=== PATIENT | female | born 1950 | race Caucasian/White ===

== ENCOUNTER 2021-06-16 11:22 | Outpatient (CLI) | payer MEDICARE, SELFPAY ==
--- NOTE | 2021-06-16 11:32 | ECG_ITS ---
Measurements Intervals [place] Rate: 63 P: 15 WV: 148 QRS: -31 QRSD: 120 T: 25 QT: 422 QTc: 432 Interpretive Statements SINUS RHYTHM LEFT VENTRICULAR HYPERTROPHY LEFT ANTERIOR SUPERIOR HEMIBLOCK ABNORMAL ECG NO PREVIOUS ECG AVAILABLE FOR COMPARISON Electronically Signed On 06-16-2021 17:31:47 CDT by Marlo Zamudio M.D.
[2021-06-16 12:10] LABS: Anion Gap 8 mmol/L (8-16); Blood Urea Nitrogen 17 mg/dL (7-17); Calcium 9.1 mg/dL (8.4-10.2); Carbon Dioxide 28 mmol/L (22-30); Chloride 99 mmol/L (98-107); Estimated Glomerular Filt Rate > 60; Glucose 102 mg/dL (65-110); Potassium 3.6 mmol/L (3.4-5.0); Sodium 135 mmol/L (137-145)
== END 2021-06-16 11:23 | disposition home or self-care (01) ==
LOC: ANHSURGERY 11:26
PROVIDERS: Anesthesiology; PCP Family Medicine; Visit Provider Orthopaedic Surgery
DX: Z51.81 Encounter for therapeutic drug level monitoring (principal); I10 Essential (primary) hypertension; Z01.818 Encounter for other preprocedural examination; R94.31 Abnormal electrocardiogram [ECG] [EKG]
CPT/HCPCS: 36415; 80048; 93005

== ENCOUNTER → 2021-06-20 00:38 | Outpatient (CLI) | payer MEDICARE, SELFPAY ==
[2021-06-20 11:50] LABS: SARS-CoV-2 RNA PCR Negative
== END ==
PROVIDERS: PCP Family Medicine; Visit Provider Orthopaedic Surgery
DX: Z01.818 Encounter for other preprocedural examination (principal); S83.281A Other tear of lateral meniscus, current injury, right knee, initial encounter; Z20.822 Contact with and (suspected) exposure to COVID-19; S83.241A Other tear of medial meniscus, current injury, right knee, initial encounter; X58.XXXA Exposure to other specified factors, initial encounter
CPT/HCPCS: C9803; U0003; U0005

== ENCOUNTER 2021-06-23 00:19 | Day surgery (SDC) | payer MEDICARE, SELFPAY ==
[2021-06-11 15:27] VITALS: BMI 29.5
--- NOTE | 2021-06-11 15:46 | PC.NURSE ---
Report to the Outpatient Waiting Room, entrance under the green pavilion located off [facility], at time __12:00PM on date _06/23/21 . OR Time: __2:00PM . - You and your visitor will be asked a series of questions to screen for COVID 19 for your protection. - A mask is required within the hospital. Preoperative COVID Testing Requirements: COVID TEST 06/20/21 @ 9:45AM No COVID Test needed if: (proof is required; if not received patient will have Rapid Test prior to entry) - Patient has received COVID Vaccine at least 14 days prior to procedure date or - Patient has positive COVID test result within last 90 days of surgery date. COVID Test needed if above criteria is not met If not COVID vaccinated a COVID test must be conducted within 72 hours of surgery and patient is asked to isolate self from time of testing until procedure. You will go to the [facility] for your COVID testing. The [facility] is located at the corner of [address] from [facility]. You will only be called if COVID results are positive and your surgeon may reschedule your elective surgery date. Patients may have clear liquids (water, carbonated beverages, clear teas, apple juice) until 3 hours prior to surgery with a maximum of 20 ounces. - No food from midnight until time of surgery - Infants may have breast milk until 4 hours before surgery, formula 6 hours prior to surgery. - Children will be allowed to drink immediately following surgery. If applicable, please bring a bottle or sippy cup to assist with drinking. Juice, water, soda, and popsicles are readily available. For infants on formula, please bring formula the day of surgery. Pacifiers are allowed. Take the following medications with a SIP of water the morning of surgery: ___EYE DROPS Medications to discontinue per physician HOLD MELOXICAM(NSAIDS) 7 DAYS PRE-OP (LAST DOSE- 06/16/21), HOLD ALL VITAMINS/ SUPPLEMENTS 3 DAYS PRE-OP LAST DOSE 06/19/21 Please no make-up, nail burkinan, hairspray, perfume, deodorant, or body powder the day of surgery. No jewelry (including any body piercings) or valuables the day of surgery, leave them at home. Please take a shower or bath the night before, or the morning of, surgery with an antibacterial soap. Wear comfortable, loose fitting clothing. Children are encouraged to wear pajamas. - Jewelry must be removed prior to entering the operating room. Rings and piercings that are not removed may be cut off. - The hospital will not accept responsibility for valuables. - Please leave all valuables, including medications, at home the day of surgery. If you are going home after surgery, a licensed milk tanker driver must drive you home. - NO public transportation without another adult. - We recommend that an adult stay with you for 24 hours following discharge. - We also recommend that you do not drive, make important decision, drink alcoholic beverages, or take any drugs that were not prescribed by your health care provider for at least 24 hours after your discharge time. For Pediatric surgeries, we recommend two adults accompany the child home (only one inside the building at this time). One visitor will be allowed to accompany the patient into the hospital. Patients visitor will be instructed to remain with patient at all times or leave the building. We will allow the visitor to come back to the postoperative area when patient is ready. Follow any additional instructions given to you from your surgeon. Telephone instructions given to __PATIENT and asked if any additional questions and then verbalized understanding. Patient advised to call surgeon office or pre surgery nurse liaison [phone] if any additional questions.
[2021-06-23] VITALS (9 sets, daily range): BP systolic 130–177; BP diastolic 72–98; PULSE 52–78; RESP 9–16; TEMP 36.8; O2SAT 97–100; BMI 29.5
--- NOTE | 2021-06-23 07:10 | WPDHPUPDATE1 ---
History and Physical Update Update Date/Time: 06/23/21 07:10 History and Physical has been reviewed, including an updated exam of the patient. There are NO changes in the patient's condition. Risks, benefits, and alternatives have been discussed and questions answered. Patient agrees to proceed with procedure.
[2021-06-23] MEDS: ACETAMINOPHEN 500 MG TABLET 1000 MG PO (13:00)
[2021-06-23] MEDS: KETOROLAC 15 MG/ML VIAL (*BKC) IV PUSH (13:00)
--- NOTE | 2021-06-23 13:09 | P.PNAN_ITS ---
Anes - Initial Pre Proc Eval Procedure: Operation Date: 06/23/21 14:00 Proposed Procedures p Right Knee Arthroscopic Partial Medial and Lateral Meniscectomy - Martin Gold MD Date/Time: 06/23/21 13:09 Surgeon: Martin Gold MD Pre Op Diagnosis: medial and lateral meniscus tears right knee Patient Data Age: 70 Gender: F Height: 1.63 m Weight: 78 kg Allergies Allergy/AdvReac Type Severity Reaction Status Date / Time No Known Allergies Allergy Verified 06/11/21 15:15 Home Medications Medication Instructions Recorded Confirmed Type amitriptyline 10 mg tablet 10 mg PO HS 05/10/19 06/11/21 History lisinopril 10 mg tablet 10 mg PO HS 05/10/19 06/11/21 History alendronate 70 mg tablet 70 mg PO WEEKLY 03/26/21 06/11/21 History apremilast 30 mg tablet 30 mg PO BID 03/26/21 06/11/21 History linaclotide 145 mcg capsule 145 mcg PO DAILY 03/26/21 06/11/21 History meloxicam 7.5 mg tablet 7.5 mg PO BID tablet 03/26/21 06/11/21 History Pro Hydra 1 tab-cap PO DAILY 06/11/21 06/11/21 History acetaminophen [Tylenol Arthritis] 1,300 mg PO Q12H PRN 06/11/21 06/11/21 History loteprednol etabonate 1 drp EACH EYE QAM 06/11/21 06/11/21 History multivitamin [Multiple Vitamin] 1 tablet PO DAILY 06/11/21 06/11/21 History potassium chloride 20 meq PO QAM 06/11/21 06/11/21 History triamterene-hydrochlorothiazid 1 tablet PO QAM 06/11/21 06/11/21 History Patient hx anesthesia problems: other (slow to awaken) Family hx anesthesia problems: none Results Review: All pre-operative results and documents have been reviewed as part of the pre-operative evaluation. [facility] Past Medical History Medical History Arthritis of carpometacarpal (CMC) joint of left thumb Hypertension Osteoarthritis of left knee Surgical History Surgical History H/O excision of ganglion cyst (~02/21/15) History of hysterectomy (~2006) History of meniscectomy of left knee (~04/28/18) Family History Family History Grandparent Family history of malignant neoplasm of breast Social History Social History Alcohol intake: never Substance use: never Living arrangements: with family Additional living arrangements comments: HUSB Spiritual care concerns: No Anes - Eval Final PreProcedure Day of Procedure 06/23/21 13:09 Patient weight: overweight Heart: regular rate and rhythm Lungs: clear to auscultation Airway: Mallampati scale class II Neurological: alert and oriented Last oral intake: >/= 8 hours ASA classification: II Emergent: no Anesthetic plan: proceed Anesthesia type and monitoring: general LMA and standard monitoring Results Review: All pre-operative results and documents have been reviewed as part of the pre-operative evaluation. Informed Consent: The patient's anesthetic plan and its attendant risks and benefits were discussed with the patient/family/POA. Questions were solicited and answers provided to the satisfaction of the patient/family/POA.
[2021-06-23] MEDS: LACTATED RINGERS 1,000 ML 30 ML IV CONT (13:15)
[2021-06-23] MEDS: ceFAZolin 2 GM/D5W 50 ML 2 GM/50 ML BAG IVPB (13:58)
[2021-06-23] MEDS: fentaNYL CITRATE INJ (*CRX) 100 MCG/2 ML VIAL 25 MCG IV PUSH ×2 (15:25→15:34)
--- NOTE | 2021-06-23 17:16 | SUR.PHASEII ---
OXYCODONE 5 MG PO GIVEN AT ABOUT 1640.
--- NOTE | 2021-06-25 16:34 | P.OP_ITS ---
Procedure Note - Detailed Date of Procedure 06/25/21 Pre-op Diagnosis medial and lateral meniscus tears right knee Post-op Diagnosis Same Procedure Performed Arthroscopic partial medial and lateral meniscectomy Surgeon Martin Gold MD Real Estate Transaction Coordinator Alexandria Quintanilla PA-C Anesthesia General Findings Moderate posterior horn tears of medial and lateral menisci. Also subtle anterior horn tear lateral. Mild degenerative disease. Medial femur chondromalacia grade 2, medial tibia grade 2. Lateral femur chondromalacia grade 1, lateral tibia grade 1. Patellar grade 2, trochlea grade 2. Description of Procedure The patient was identified and the surgical site confirmed and signed in the preoperative holding area. Antibiotics were started per protocol. She was brought to the operative room and transferred to the OR table. A general an esthetic was administered. Supine position with the operative lower extremity position in the leg ridley after placement of a well padded tourniquet. The leg support was lowered and the contralateral limb was supported with a soft bolster. The knee was prepped and draped in the usual sterile fashion. A time- out was performed. The portal sites were marked and infiltrated with 0.5% Marcaine 20 mL. The limb was exsanguinated and the tourniquet inflated to 300 mL Hg. Standard inferolateral and inferomedial portals were established. Inflow was obtained with the saline pump. The camera was introduced. Diagnostic inspection of the joint was accomplished. The menisci were debrided with the arthroscopic shaver and punches until stable. Mild degenerative changes treated with chondroplasty. The arthroscopic instruments were removed. The tourniquet released and wounds closed with subcutaneous 4-0 Monocryl absorbable suture. Steri strips and a sterile dressing were applied. A light elastic wrap was placed. The patient was extubated and brought to the recovery room in stable condition. Estimated Blood Loss 5 Drains No Complications No immediate complications Condition Stable Disposition PACU
== END 2021-06-23 17:19 | disposition home or self-care (01) ==
PROVIDERS: PCP Family Medicine; Visit Provider Orthopaedic Surgery
PROC: (CPT 29870; principal; 2021-06-23 14:00)
DX: M23.321 Other meniscus derangements, posterior horn of medial meniscus, right knee (principal); M23.351 Other meniscus derangements, posterior horn of lateral meniscus, right knee; M94.261 Chondromalacia, right knee; M17.11 Unilateral primary osteoarthritis, right knee; I10 Essential (primary) hypertension
CPT/HCPCS: 29880; 36415; 80048; 93005; A9270; C9803; J0690; J1885; J2270; J2405; J2704; J3010; J7120; U0003; U0005